=== PATIENT | female | born 1970 | race Caucasian/White ===

== ENCOUNTER → 2017-11-08 | Outpatient (CLI) | payer OTHER | LOC: BHFA 10:00 | PROVIDERS: ATTEND Internal Medicine Cardiovascular Disease | DX: Z51.11 Encounter for antineoplastic chemotherapy (principal) ==

== ENCOUNTER → 2018-06-18 | Outpatient (CLI) | payer OTHER | DX: Z51.11 Encounter for antineoplastic chemotherapy (principal) ==

== ENCOUNTER 2019-03-07 09:59 | Day surgery (SDC) | payer OTHER ==
[2019-03-07] MEDS ORDERED: ceFAZolin 2 GM/DEXTROSE 100 ML IV ONE (10:14)
[2019-03-07] MEDS ORDERED: LR 1,000 ML IV ONE (10:14)
--- NOTE | 2019-03-07 10:58 | PDHPUP ---
History & Physical Update H&P update statement: This history and physical update is based on an assessment of the patient which was completed after admission or registration (within 24 hours), but prior to the surgery/procedure. H&P update: H&P reviewed & patient examined, no change in patient's condition since H&P completed
[2019-03-07] MEDS ORDERED: BUPIVACAINE 0.5% 30 ML SDV ONE (11:01)
[2019-03-07] MEDS ORDERED: MIDAZOLAM 2 MG/2 ML VIAL ONE (11:43)
[2019-03-07] MEDS ORDERED: MIDAZOLAM 2 MG/2 ML VIAL IVP ONE (11:45)
[2019-03-07] MEDS ORDERED: ACETAMINOPHEN 500 MG TAB PO PRN (11:46)
[2019-03-07] MEDS ORDERED: fentaNYL 100 MCG/2 ML INJ IVP PRN (11:46)
[2019-03-07] MEDS ORDERED: HYDROCODONE/APAP 5/325 TAB PO PRN (11:46)
[2019-03-07] MEDS ORDERED: PROMETHAZINE HCL 25 MG/ML INJ IVP PRN (11:46)
[2019-03-07] MEDS ORDERED: LR 500 ML IV PRN (11:46)
[2019-03-07] MEDS ORDERED: NALOXONE HCL 0.4 MG/ML INJ IVP PRN (11:46)
[2019-03-07] MEDS ORDERED: ONDANSETRON 4 MG/2 ML VIAL IVP PRN (11:46)
--- NOTE | 2019-03-07 11:46 | PDANEPAE ---
ANE Past Medical History - Cardiovascular History Hx Hypertension: No Hx Arrhythmias: No Hx Chest Pain: No Hx Coronary Artery / Peripheral Vascular Disease: No Hx CHF / Valvular Disease: No Hx Palpitations: No - Pulmonary History Hx COPD: No Hx Asthma/Reactive Airway Disease: No Hx Recent Upper Respiratory Infection: No Hx Oxygen in Use at Home: No Hx Sleep Apnea: No Sleep Apnea Screening Result - Last Documented: Negative Pulmonary History Comment: chronic bronchitis as child - Neurologic History Hx Cerebrovascular Accident: No Hx Seizures: No Hx Dementia: No - Endocrine History Hx Diabetes: No Obesity: no - Renal History Hx Renal Disorders: No - Liver History Hx Hepatic Disorders: No - Neurological & Psychiatric Hx Hx Neurological and Psychiatric Disorders: No - Cancer History Hx Cancer: Yes Cancer History Comment: breast cancer - Congenital Disorder History Hx Congenital Disorders: No - GI History GERD: no Hx Gastrointestinal Disorders: No - Other Health History Other Health History: none - Chronic Pain History Chronic Pain: Yes (chest,back R/T breast cancer) - Surgical History Prior Surgeries: none in last 5 yrs. tonsilectomy as child ANE Review of Systems Review of Systems: - Exercise capacity METS (RN): 5 METS ANE Patient History - Allergies Allergies/Adverse Reactions: No Known Allergies Allergy (Verified 02/26/19 11:39) - Home Medications Home medications: home medication list seen and reviewed Home Medications: Fentanyl Patch 02/26/19 [Last Taken 1 Day Ago ~03/06/19] Herbals/Supplements -Info Only 02/26/19 [Last Taken 1 Week Ago ~02/28/19] Oxycodone HCl 02/26/19 [Last Taken 03/06/19] - NPO status NPO Status: no food or drink >8 hours NPO Since - Liquids (Date): 03/07/19 NPO Since - Liquids (Time): 08:30 NPO Since - Solids (Date): 03/06/19 NPO Since - Solids (Time): 20:30 - Anes Hx Anes Hx: no prior problems - Smoking Hx Smoking Status: Former smoker - Family Anes Hx Family Hx Anesthesia Complications: none ANE Labs/Vital Signs - Vital Signs Blood Pressure: 116/83 Heart Rate: 67 Respiratory Rate: 16 O2 Sat (%): 97 Height: 173.99 cm Weight: 54.431 kg ANE Physical Exam - Airway Neck exam: FROM Mallampati Score: Class 1 Mouth exam: normal dental/mouth exam - Pulmonary Pulmonary: no respiratory distress, no rales or rhonchi, clear to auscultation - Cardiovascular Cardiovascular: regular rate and rhythym, no murmur, rub, or gallop - ASA Status ASA Status: III ANE Anesthesia Plan Anesthesia Plan: MAC
[2019-03-07] MEDS ORDERED: fentaNYL 100 MCG/2 ML INJ ONE (11:54)
[2019-03-07] MEDS ORDERED: PROPOFOL 200 MG/20 ML VIAL ONE (11:54)
[2019-03-07] MEDS ORDERED: LIDOCAINE 1% 300 MG/30 ML SDV ONE (11:54)
--- NOTE | 2019-03-07 12:23 | POSTOPPROG ---
Post Op Note Date of Operation: 03/07/19 Surgeon: Beth Sol Anesthesiologist: claire Anesthesia: IV Sedation Pre-op Diagnosis: metastatic breast ca Post-op Diagnosis: same Indication: 48 yo with metastatic breast ca Procedure: R breast excisional biopsy Findings: firm tissue Inf/Abcess present in the surg proc area at time of surgery?: No Depth: Superfical (Skin SQ) EBL: Minimal Specimen(s): breast tissue for ER, possible foundation, and chemosensitivity testing outside lab
--- NOTE | 2019-03-07 12:30 | POSTANESTH ---
Post Anesthetic Evaluation Cardiovascular Status: Normal, Stable, Similar to Pre-Op Cond Respiratory Status: Similar to Pre-op Cond. Level of Consciousness/Mental Status: Can Participate in Eval, Mildly Sleepy, Arousable Pain Control: Adequate, Prn Tx Ordered Nausea/Vomiting Control: Adequate, Prn Tx Ordered Complications Possibly Related to Anesthesia: None Noted
[2019-03-07 13:48] VITALS: BP 112/81
== END 2019-03-07 14:37 | disposition home or self-care (01) ==
LOC: FSGY 09:59
PROVIDERS: ATTEND Surgery
PROC: 0HBT0ZX Excision of Right Breast, Open Approach, Diagnostic (ICD-10-PCS; principal; 2019-03-07 11:45)
DX: C50.911 Malignant neoplasm of unspecified site of right female breast (principal); C79.51 Secondary malignant neoplasm of bone; C78.7 Secondary malignant neoplasm of liver and intrahepatic bile duct; C78.02 Secondary malignant neoplasm of left lung; C78.01 Secondary malignant neoplasm of right lung; C77.3 Secondary and unspecified malignant neoplasm of axilla and upper limb lymph nodes
CPT/HCPCS: J0690; J2250; J2704; J3010

== ENCOUNTER 2019-03-21 14:37 | Day surgery (SDC) | payer OTHER ==
[2019-03-21] MEDS ORDERED: ceFAZolin 2 GM/DEXTROSE 100 ML IV ONE (14:48)
[2019-03-21] MEDS ORDERED: LR 1,000 ML IV ONE (14:49)
--- NOTE | 2019-03-21 15:03 | PDANEPAE ---
ANE History of Present Illness 49 yo female with metastatic breast cancer for re-excision for positive margins. ANE Past Medical History - Cardiovascular History Hx Hypertension: No Hx Arrhythmias: No Hx Chest Pain: No Hx Coronary Artery / Peripheral Vascular Disease: No Hx CHF / Valvular Disease: No Hx Palpitations: No - Pulmonary History Hx COPD: No Hx Asthma/Reactive Airway Disease: No Hx Recent Upper Respiratory Infection: No Hx Oxygen in Use at Home: No Hx Sleep Apnea: No Sleep Apnea Screening Result - Last Documented: Negative Pulmonary History Comment: chronic bronchitis as child - Neurologic History Hx Cerebrovascular Accident: No Hx Seizures: No Hx Dementia: No - Endocrine History Hx Diabetes: No Hypothyroid: No Hyperthyroid: No Obesity: no - Renal History Hx Renal Disorders: No - Liver History Hx Hepatic Disorders: No - Neurological & Psychiatric Hx Hx Neurological and Psychiatric Disorders: No - Cancer History Hx Cancer: Yes Cancer History Comment: breast cancer - metastatic to bone/liver/lungs - Congenital Disorder History Hx Congenital Disorders: No - GI History Hx Gastrointestinal Disorders: No - Other Health History Other Health History: none - Chronic Pain History Chronic Pain: Yes (chest,back R/T breast cancer) - Surgical History Prior Surgeries: none in last 5 yrs. tonsilectomy as child. breast biopsy ANE Review of Systems Review of Systems: - Exercise capacity METS (RN): 4 METS - Systems Constitutional: Reports: no symptoms ANE Patient History - Allergies Allergies/Adverse Reactions: No Known Allergies Allergy (Verified 02/26/19 11:39) - Home Medications Home Medications: Fentanyl Patch 02/26/19 [Last Taken 1 Day Ago ~03/06/19] Herbals/Supplements -Info Only 02/26/19 [Last Taken 1 Week Ago ~02/28/19] Oxycodone HCl 02/26/19 [Last Taken 03/06/19] - Anes Hx Anes Hx: no prior problems - Smoking Hx Smoking Status: Former smoker Marijuana use: Yes - Family Anes Hx Family Anes Hx: neg - N/A Family Hx Anesthesia Complications: none ANE Labs/Vital Signs - Vital Signs Height: 173.99 cm Weight: 52.163 kg ANE Physical Exam - Airway Neck exam: FROM Mallampati Score: Class 1 - ASA Status ASA Status: III ANE Anesthesia Plan Anesthesia Plan: GA with mask Total IV Anesthesia: Yes
--- NOTE | 2019-03-21 15:34 | PDHPUP ---
History & Physical Update H&P update statement: This history and physical update is based on an assessment of the patient which was completed after admission or registration (within 24 hours), but prior to the surgery/procedure. H&P update: H&P reviewed & patient examined, changes noted ([facility] did not have living cells, need to re-excise)
[2019-03-21] MEDS ORDERED: BUPIVACAINE 0.5% 30 ML SDV ONE (15:56)
[2019-03-21] MEDS ORDERED: MIDAZOLAM 2 MG/2 ML VIAL IVP ONE (16:24)
[2019-03-21] MEDS ORDERED: MIDAZOLAM 2 MG/2 ML VIAL ONE (16:24)
--- NOTE | 2019-03-21 16:26 | PDANEPAE ---
ANE History of Present Illness breast Ca for re-excision ANE Past Medical History - Cardiovascular History Hx Hypertension: No Hx Arrhythmias: No Hx Chest Pain: No Hx Coronary Artery / Peripheral Vascular Disease: No Hx CHF / Valvular Disease: No Hx Palpitations: No - Pulmonary History Hx COPD: No Hx Asthma/Reactive Airway Disease: No Hx Recent Upper Respiratory Infection: No Hx Oxygen in Use at Home: No Hx Sleep Apnea: No Sleep Apnea Screening Result - Last Documented: Negative Pulmonary History Comment: chronic bronchitis as child - Neurologic History Hx Cerebrovascular Accident: No Hx Seizures: No Hx Dementia: No - Endocrine History Hx Diabetes: No Hypothyroid: No Hyperthyroid: No Obesity: no - Renal History Hx Renal Disorders: No - Liver History Hx Hepatic Disorders: No - Neurological & Psychiatric Hx Hx Neurological and Psychiatric Disorders: No - Cancer History Hx Cancer: Yes Cancer History Comment: breast cancer - metastatic to bone/liver/lungs - Congenital Disorder History Hx Congenital Disorders: No - GI History Hx Gastrointestinal Disorders: No - Other Health History Other Health History: none - Chronic Pain History Chronic Pain: Yes (chest,back R/T breast cancer) - Surgical History Prior Surgeries: none in last 5 yrs. tonsilectomy as child. breast biopsy ANE Review of Systems Review of Systems: - Exercise capacity METS (RN): 4 METS ANE Patient History - Allergies Allergies/Adverse Reactions: No Known Allergies Allergy (Verified 02/26/19 11:39) - Home Medications Home medications: home medication list seen and reviewed Home Medications: Fentanyl Patch 02/26/19 [Last Taken 03/18/19] Herbals/Supplements -Info Only 02/26/19 [Last Taken 03/18/19] Oxycodone HCl 02/26/19 [Last Taken 03/21/19] - NPO status NPO Status: no food or drink >8 hours NPO Since - Liquids (Date): 03/21/19 NPO Since - Liquids (Time): 12:00 NPO Since - Solids (Date): 03/21/19 NPO Since - Solids (Time): 07:00 - Anes Hx Anes Hx: no prior problems - Smoking Hx Smoking Status: Former smoker - Alcohol Use Alcohol Use: None - Family Anes Hx Family Anes Hx: none Family Hx Anesthesia Complications: none ANE Labs/Vital Signs - Vital Signs Blood Pressure: 110/66 Heart Rate: 75 Respiratory Rate: 14 O2 Sat (%): 97 Height: 173.99 cm Weight: 52.163 kg ANE Physical Exam - Airway Neck exam: FROM Mallampati Score: Class 1 - Pulmonary Pulmonary: no respiratory distress - Cardiovascular Cardiovascular: regular rate and rhythym - ASA Status ASA Status: II ANE Anesthesia Plan Anesthesia Plan: GA w LMA
[2019-03-21] MEDS ORDERED: PROPOFOL/EMULSION 500 MG/50 ML BOTTLE IV ONE (16:33)
[2019-03-21] MEDS ORDERED: fentaNYL 100 MCG/2 ML INJ ONE (16:33)
[2019-03-21] MEDS ORDERED: LIDOCAINE 2% 100 MG/5 ML SYR ONE (16:34)
[2019-03-21] MEDS ORDERED: DEXAMETHASONE 4 MG/ML VIAL ONE (16:37)
[2019-03-21] MEDS ORDERED: ONDANSETRON 4 MG/2 ML VIAL ONE (16:37)
[2019-03-21] MEDS ORDERED: LIDOCAINE 2% JELLY 6 ML TOPICAL SYR ONE (16:37)
[2019-03-21] MEDS ORDERED: DEXAMETHASONE 4 MG/ML VIAL IVP PRN (17:19)
[2019-03-21] MEDS ORDERED: METOCLOPRAMIDE 10 MG/2 ML VIAL IVP PRN (17:19)
[2019-03-21] MEDS ORDERED: MEPERIDINE 25 MG/0.5 ML AMP IVP PRN (17:19)
[2019-03-21] MEDS ORDERED: ALBUTEROL 3 ML DEYVIAL IH PRN (17:19)
[2019-03-21] MEDS ORDERED: PROMETHAZINE HCL 25 MG/ML INJ IVP PRN (17:19)
[2019-03-21] MEDS ORDERED: NALOXONE HCL 0.4 MG/ML INJ IVP PRN (17:19)
[2019-03-21] MEDS ORDERED: LABETALOL HCL 5 MG/ML 20 ML MDV IVP PRN (17:19)
[2019-03-21] MEDS ORDERED: LR 500 ML IV PRN (17:19)
[2019-03-21] MEDS ORDERED: oxyCODONE IR 5 MG TAB PO PRN (17:19)
[2019-03-21] MEDS ORDERED: PHENYLEPHRINE HCL 100 MCG/ML SYR IVP PRN (17:19)
[2019-03-21] MEDS ORDERED: HYDROCODONE/APAP 5/325 TAB PO PRN (17:19)
[2019-03-21] MEDS ORDERED: ONDANSETRON 4 MG/2 ML VIAL IVP PRN (17:19)
[2019-03-21] MEDS ORDERED: ACETAMINOPHEN 500 MG TAB PO PRN (17:19)
[2019-03-21] MEDS ORDERED: fentaNYL 100 MCG/2 ML INJ IVP PRN (17:19)
--- NOTE | 2019-03-21 17:48 | POSTOPPROG ---
Post Op Note Date of Operation: 03/21/19 Surgeon: Beth Sol Anesthesiologist: nay Anesthesia: GET(General Endotracheal) Pre-op Diagnosis: R met breast ca Post-op Diagnosis: same Indication: 49 yo with met breast ca Procedure: R breast excisional breast biopsy Findings: firm tissue Inf/Abcess present in the surg proc area at time of surgery?: No EBL: Minimal Specimen(s): firm tissue
[2019-03-21 17:54] VITALS: BP 123/85
== END 2019-03-21 18:15 | disposition home or self-care (01) ==
LOC: FSGY 14:37
PROVIDERS: ATTEND Surgery
PROC: 0HBT0ZX Excision of Right Breast, Open Approach, Diagnostic (ICD-10-PCS; principal; 2019-03-21 16:15)
DX: C50.911 Malignant neoplasm of unspecified site of right female breast (principal); C79.51 Secondary malignant neoplasm of bone; C78.7 Secondary malignant neoplasm of liver and intrahepatic bile duct; C78.01 Secondary malignant neoplasm of right lung; C78.02 Secondary malignant neoplasm of left lung
CPT/HCPCS: J0690; J1100; J2001; J2250; J2405; J2704; J3010

== ENCOUNTER → 2019-04-29 | Outpatient (CLI) | payer OTHER | LOC: BHFA 10:00 ==